=== PATIENT | male | born 1995 | race Caucasian/White ===

== ENCOUNTER → 2020-01-12 13:58 | Outpatient (CLI) | payer OTHER, SELFPAY ==
--- NOTE | ~2020-01-12 | MR_ITS ---
EXAMINATION: MR brain/brain stem wo/w con DATE: 01/12/2020 15:24 INDICATION: Headache. TECHNIQUE: Magnetic resonance imaging (MRI) of the brain and brainstem was performed without and with 18 mL MultiHance intravenous contrast. Sequences included sagittal and axial T1-weighted FSE, axial diffusion-weighted FS EPI, axial T2*-weighted GRE, axial T2-weighted FLAIR Propeller, and axial T2-we ighted Propeller. Postcontrast sequences included axial and coronal T1-weighted FSE. Apparent diffusi on coefficient (ADC) maps were created. COMPARISON: None. FINDINGS: There is no intracranial hemorrhage, acute infarction, or abnormal intracranial mass lesion . The ventricles are normal in size. The paranasal sinuses are clear. The orbits are normal. The mast oid air cells are normal. IMPRESSION: 1. Normal brain. Reviewed, dictated and finalized at location A. 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 Normal brain.
[2020-01-12 15:06] LABS: Estimated Glomerular Filt Rate > 60
== END ==
PROVIDERS: PCP Internal Medicine; Visit Provider Physician Assistant Medical
DX: R51.9 Headache, unspecified (principal)
CPT/HCPCS: 70553; A9577

== ENCOUNTER 2024-09-13 08:41 | Emergency (ER) | payer OTHER, SELFPAY ==
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
--- NOTE | ~2024-09-13 | XR_ITS ---
Lumbosacral Spine: AP, oblique, and lateral views Clinical History: Pain Findings: The normal lordotic curve is maintained. The vertebral bodies and posterior elements are i ntact. The intervertebral disc spaces are preserved. The sacroiliac joints are normally outlined. Impression: No significant abnormality. Reviewed, dictated and finalized at [facility]. Impression: No significant abnormality.
--- NOTE | ~2024-09-13 | XR_ITS ---
Cervical Spine: AP, lateral, oblique, open-mouth views Clinical History: Pain Findings: The normal lordotic curve is maintained. The vertebral bodies and posterior elements appea r intact. The intervertebral disc spaces are well maintained. Pre-vertebral soft tissues are unremar kable. Impression: No significant abnormality is seen. Reviewed, dictated and finalized at [facility]. Impression: No significant abnormality is seen.
--- NOTE | ~2024-09-13 | XR_ITS ---
Thoracic spine: Clinical Indication: Back pain AP and lateral views were performed. No fracture is seen. There is normal alignment of the vertebrae. The intervertebral disc spaces appe ar normal. Paravertebral soft tissues appear normal. Impression: No significant abnormalities noted. Reviewed, dictated and finalized at [facility]. Impression: No significant abnormalities noted.
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
--- OUTSIDE RECORDS SUMMARY | 2024-09-13 08:45 | XMS_ITS | Clinical Summary ---
Author Organization [facility] Address [address] [place] [id number] Care Team Providers Care Costing Manager Name Role Phone Deisy Duke PA-C Primary Care Provider [phone] Allergies No known active allergies Medications amphetamine-dext roamphetamine (ADDERALL) 30 MG tablet Take 1 tablet (30 mg total) by mouth daily. 01/26/2023 Active Active Problems No known active problems Immunizations Immunization Administration Dates Next Due Tdap (Boostrix) 04/25/2024 Social History Tobacco Use Types Packs/Day Years Used Date Smoking Tobacco: Never Smokeless Tobacco: Never Tobacco Cessation:Counseling Given: Not Answered Alcohol Use Standard Drinks/Week Comments Not Currently 0 (1 standard drink = 0.6 oz pur e alcohol) Sex and Gender Information Value Date Recorded Sex Assigned at Male 04/25/2024 6:03 PM ANIMAL NUTRITION CONSULTANT Legal Sex Male 7:25 PM CDT Gender Identity Not on file Sexual Orientation Not on file Last Filed Vital Signs Vital Sign Reading Time Taken Comments Blood Pressure 214/121 04/25/2024 6:16 PM ANIMAL NUTRITION CONSULTANT Pulse 88 04/25/2024 6:16 PM ANIMAL NUTRITION CONSULTANT Temperature 36.7 C (98 F) 04/25/2024 6:16 PM ANIMAL NUTRITION CONSULTANT Respiratory Rate 18 04/25/2024 6:16 PM ANIMAL NUTRITION CONSULTANT Oxygen Saturation 99% 04/25/2024 6:16 PM ANIMAL NUTRITION CONSULTANT Inhaled Oxygen Concentration - - Weight 98 kg (216 lb) 04/25/2024 6:16 PM ANIMAL NUTRITION CONSULTANT Height 190.5 cm (6' 3) 04/25/2024 6:16 PM ANIMAL NUTRITION CONSULTANT Body Mass Index 27 04/25/2024 6:16 PM ANIMAL NUTRITION CONSULTANT Plan of Treatment Health Maintenance Due Date Last Done Comments Annual Physical 1997 Hepatitis C 2012 Hepatitis B Vaccines (1 of 3 - 19+ 3-dose series) 2013 COVID-19 Vaccine (1 - 2023-2 5 season) 2023 PHQ-2 (Physician [place]) 03/08/2024 DTaP, Tdap and Td Vaccines ( 4 - Td or Tdap) 04/25/2034 04/25/2024, 04/26/2023, 07/27/2013 HPV Vaccines Aged Out No longer eligi ble based on patient's age to complete this topic Meningococcal B Vaccine Aged Out No l onger eligible based on patient's age to complete this topic Meningococcal Vaccine Aged Out No alena roc eligible based on patient's age to complete this topic Pneumococcal Vaccine: Pediatrics (0 to 5 Years) and At-Risk Patients (6 to 49 Years) Aged Out No longer eligible b ased on patient's age to complete this topic RSV Immunizations Under 20 Months Aged Out No longer eligible b ased on patient's age to complete this topic Insurance Care Teams Costing Manager Relationship Specialty Start Date End Date Deisy Duke PA-C [address] [place], [place] [address] [place] [address] PCP - General PHYSICIAN ORDNANCE TRUCK INSTALLATION SUPERVISOR 04/25/24
--- OUTSIDE RECORDS SUMMARY | 2024-09-13 08:45 | XMS_ITS | Clinical Summary ---
Author Organization [facility] Address [address] [place] [address] Care Team Providers Care Rake Operator Name Role Phone Unavailable Primary Care Provider Unavailabl e Source Comments [facility],non-owned Affiliates and Associated Physician Practices is amultiple site organization consisting of ambulatory clinics and hospital sitesin [place], [place] and [place]. This disclosure is being madepursuant to the Care Everywhere program and may not contain all information available regarding this patient. 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 Gender Identity Not on file Sexual Orientation Not on file Plan of Treatment Health Maintenance Due Date Last Done Comments HIV SCREENING 2009 HEPATITIS C SCREENING 05/05/2012 DTAP/TDAP/TD VACCINES (1 - Tdap) 2013 HEPATITIS B VACCINE (1 of 3 - 19+ 3-dose series) 2013 COVID-19 VACCINE (1 - 2023-2 5 season) 2023 DEPRESSION SCREENING 03/08/2024 INFLUENZA VACCINE (#1) 2024 ZOSTER VACCINE (1 of 2) 2044 HIB VACCINE Aged Out No longer eligi ble based on patient's age to complete this topic HPV VACCINE Aged Out No longer eligi ble based on patient's age to complete this topic MENINGOCOCCAL (Group B) VACC INE SHARED DECISION-MAKING Aged Out No longer eligibl e based on patient's age to complete this topic MENINGOCOCCAL GROUPS A/C/Y/W VACCINE Aged Out No longer eligible b ased on patient's age to complete this topic PNEUMOCOCCAL VACCINE Aged Out No long er eligible based on patient's age to complete this topic
[2024-09-13 08:52] VITALS: BP 136/84; PULSE 81; RESP 16; TEMP 36.7; O2SAT 100
== END 2024-09-13 09:40 | disposition home or self-care (01) ==
PROVIDERS: Emergency Provider Nurse Practitioner Family; PCP Physician Assistant Medical
DX: S16.1XXA Strain of muscle, fascia and tendon at neck level, initial encounter (principal); S29.012A Strain of muscle and tendon of back wall of thorax, initial encounter; S39.012A Strain of muscle, fascia and tendon of lower back, initial encounter; V43.52XA Car driver injured in collision with other type car in traffic accident, initial encounter; F90.9 Attention-deficit hyperactivity disorder, unspecified type
CPT/HCPCS: 72050; 72072; 72100; 72110; 99214; G0463